=== PATIENT | female | born 1960 | race Caucasian/White ===

== ENCOUNTER → 2017-02-22 | Outpatient (CLI) | payer BC | LOC: MC.RAD 13:55 | DX: Z12.31 Encounter for screening mammogram for malignant neoplasm of breast (principal); R92.8 Other abnormal and inconclusive findings on diagnostic imaging of breast ==

== ENCOUNTER → 2017-02-24 | Outpatient (CLI) | payer BC | LOC: MC.RAD 11:00 | DX: R92.8 Other abnormal and inconclusive findings on diagnostic imaging of breast (principal) ==

== ENCOUNTER → 2018-06-22 | Outpatient (CLI) | payer BC | LOC: MC.RAD 08:11 | DX: Z12.31 Encounter for screening mammogram for malignant neoplasm of breast (principal) ==

== ENCOUNTER → 2018-10-10 | Outpatient (CLI) | payer BC | LOC: COL.RAD 10:30 | DX: J30.2 Other seasonal allergic rhinitis (principal) ==

== ENCOUNTER → 2020-05-06 | Outpatient (CLI) | payer OTHER | LOC: MC.RAD 12:54 | DX: Z12.31 Encounter for screening mammogram for malignant neoplasm of breast (principal) ==

== ENCOUNTER 2022-07-17 11:32 | Emergency (ER) | payer OTHER ==
[~2022-07-17] VITALS: Ht 170.2 cm; Wt 77.3 kg
[2022-07-17 11:39] VITALS: TEMP 97.5
[2022-07-17 12:24] LABS: BASO % 0.2 % (0.0-2.0); EOS % 0.2 % (0.0-4.0); GRAN # 4.5 K/mm3 (1.4-6.5); GRAN % 78.4 % (42.2-75.2); HEMOGLOBIN 11.3 g/dl (12.5-16.0); LYMPH # 0.4 K/mm3 (1.2-3.4); LYMPH % 7.1 % (20.0-51.0); MEAN CELL VOLUME 94 fl (80.0-100.0); MEAN CORPUSCULAR HEMOGLOBIN 32 pg (27-31); MEAN CORPUSCULAR HGB CONC 34 g/dl (33.0-37.0); MEAN PLATELET VOLUME 9.5 fl (7.4-10.4); MONO # 0.8 K/mm3 (0.1-0.6); MONO % 13.4 % (1.7-9.3); PLATELET COUNT 516 K/mm3 (130-400); RED BLOOD COUNT 3.52 M/mm3 (4.10-5.30); REDCELL DISTRIBUTION WIDTH-CV 12.7 % (11.5-14.5)
[2022-07-17 12:39] LABS: ANION GAP 13 mmol/L (7-16); BLOOD UREA NITROGEN 22 mg/dL (10-20); CALCIUM 9.7 mg/dL (8.4-10.2); CARBON DIOXIDE 20 mmol/L (23-31); CHLORIDE 100 mmol/L (98-107); CREATININE, serum 1.24 mg/dL (0.57-1.11); GLUCOSE 131 mg/dL (70-99); POTASSIUM 3.2 mmol/L (3.5-4.5); SODIUM 133 mmol/L (136-145)
[2022-07-17 12:49] LABS: TROPONIN-I < 0.010 ng/mL (0.00-0.033)
[2022-07-17 14:30] VITALS: BP 112/63; PULSE 85
== END 2022-07-17 14:32 | disposition home or self-care (01) ==
LOC: COL.ER 11:32
PROVIDERS: Emergency Medicine
DX: R51.9 Headache, unspecified (principal); R53.1 Weakness; M54.2 Cervicalgia; E87.8 Other disorders of electrolyte and fluid balance, not elsewhere classified; R53.81 Other malaise; Z87.891 Personal history of nicotine dependence; Z28.311 Partially vaccinated for COVID-19
CPT/HCPCS: J2765; J7030; Q9967

== ENCOUNTER → 2023-11-07 | Outpatient (CLI) | payer OTHER | LOC: MC.RAD 11:00 | DX: N64.89 Other specified disorders of breast (principal) ==